=== PATIENT | male | born 1995 | race Caucasian/White ===

== ENCOUNTER 2017-09-14 02:04 | Inpatient (IN) | payer OTHER ==
[~2017-09-14] VITALS: Ht 170.2 cm; Wt 82.4 kg
[2017-09-14] VITALS (10 sets, daily range): BP systolic 127–148; BP diastolic 62–88
--- NOTE | ~2017-09-14 | EKG ---
[place], [place] ELECTROCARDIOGRAM REPORT NAME: ANGEL ISSA UNIT #: [id number] ROOM: 401 DOCTOR: SERGEI GERONIMO,ALEXIA BIRTHDATE: [birth year] DOS: 09/14/2017 Time 4:44 a.m. IMPRESSION: 1. Sinus rhythm, sinus tachycardia. 2. Borderline right atrial enlargement. 3. Baseline artifact. ALEXIA MAI MD CM:EKGRPT:ELECTROCARDIOGRAM REPORT [id number] ALEXIA MAI MD
[~2017-09-14 02:04] MED LIST: CIPRO500 MG PO; COZAAR50 M1 PO; FLAGYL500 MG PO; MOTRIN800 MG PO; NOVOLOG10 ML IV; TOUJEO SOL300 UNIT/1 SQ; VITAMIN D31000 IU PO
[2017-09-14 02:52] LABS: BASO # 0.1 10*3/uL (0.0-0.1); BASO % 0.3 % (0.0-1.0); HEMATOCRIT 48.2 % (42.0-52.0); HEMOGLOBIN 16.8 g/dl (14.0-18.0); LYMPH # 1.6 10*3/uL (1.3-4.4); LYMPH % 9.6 % (27.0-41.0); MEAN CELL VOLUME 90.4 fl (80.0-94.0); MEAN CORPUSCULAR HGB 31.5 pg (27.0-31.0); MEAN CORPUSCULAR HGB CONC 34.9 g/dl (33.0-37.0); MEAN PLATELET VOLUME 10.1 fl (9.6-12.3); MONO # 0.5 10*3/uL (0.1-1.0); MONO % 3.3 % (3.0-9.0); NEUT # 14.1 10*3/uL (2.3-7.9); NEUT % 86.1 % (47.0-73.0); PLATELET COUNT AUTOMATED 381 10*3/uL (130-400); RED BLOOD COUNT 5.33 10*6/uL (4.50-5.90); RED CELL DISTRI WIDTH 12.1 % (0-14.5); WHITE BLOOD COUNT 16.4 10*3/uL (4.8-10.8)
[2017-09-14 03:05] LABS: LIPASE 38 U/L (73-393)
[2017-09-14 03:09] LABS: ALBUMIN 4.7 gm/dl (3.1-4.5); ALKALINE PHOSPHATASE 134 U/L (45-117); BUN 13 mg/dl (7-24); CHLORIDE 89 mmol/L (98-107); CREATININE 1.33 mg/dL (0.70-1.30); POTASSIUM 4.3 mmol/L (3.5-5.1); SGOT/AST 19 IU/L (3-35); SGPT/ALT 31 U/L (12-78); SODIUM 131 mmol/L (136-145); TOTAL PROTEIN 8.6 gm/dL (6.4-8.2)
[2017-09-14 03:27] LABS: BILIRUBIN NEGATIVE (NEGATIVE); BLOOD NEGATIVE (NEGATIVE); CLARITY CLEAR (CLEAR); COLOR YELLOW (YELLOW); GLUCOSE 2+ (NEGATIVE); KETONE 3+ (NEGATIVE); LEUKO ESTERASE NEGATIVE (NEGATIVE); NITRITE NEGATIVE (NEGATIVE); PH 5.5 (5.0-9.0); SPECIFIC GRAVITY 1.025 (1.005-1.030); UROBILINOGEN 0.2 E.U./dl (0.2-1.0)
[2017-09-14 03:38] LABS: ABG HCO3 7.3 mmol/l (22-26); ABG O2 SATURATION 97.3 % (95-97); ARTERIAL BLOOD GAS PCO2 17.8 mmHg (35-45); ARTERIAL BLOOD GAS PH 7.236 (7.35-7.45)
[2017-09-14 03:39] LABS: ABG BASE EXCESS -18.8 mmol/L (-2.0-2.0)
[2017-09-14 03:41] LABS: BACTERIA TRACE; WBC 0-2 wbc/hpf (0-5)
[2017-09-14 05:38] LABS: INTERNATIONAL NORM RATIO 1.1 (2.0-3.5)
[2017-09-14 05:44] LABS: BUN 13 mg/dl (7-24); CHLORIDE 94 mmol/L (98-107); CREATININE 1.53 mg/dL (0.70-1.30); SODIUM 132 mmol/L (136-145)
[2017-09-14 05:46] LABS: POTASSIUM 5.3 mmol/L (3.5-5.1)
[2017-09-14 05:48] LABS: PHOSPHOROUS 5.1 mg/dL (2.5-4.9)
[2017-09-14 05:55] LABS: THYROID STIM HORMONE (HS) 0.816 uIU/ml (0.358-4.75)
[2017-09-14 07:22] LABS: VITAMIN D, 25-HYDROXY 16.7 ng/mL (30-100)
[2017-09-14 10:26] LABS: BUN 11 mg/dl (7-24); CHLORIDE 102 mmol/L (98-107); CREATININE 1.44 mg/dL (0.70-1.30); POTASSIUM 4.9 mmol/L (3.5-5.1); SODIUM 136 mmol/L (136-145)
[2017-09-14 14:40] LABS: BUN 9 mg/dl (7-24); CHLORIDE 104 mmol/L (98-107); CREATININE 1.32 mg/dL (0.70-1.30); SODIUM 137 mmol/L (136-145)
[2017-09-14 14:42] LABS: POTASSIUM 3.7 mmol/L (3.5-5.1)
[2017-09-14 18:19] LABS: BUN 10 mg/dl (7-24); CHLORIDE 104 mmol/L (98-107); CREATININE 1.25 mg/dL (0.70-1.30); POTASSIUM 4.2 mmol/L (3.5-5.1); SODIUM 136 mmol/L (136-145)
[2017-09-14 22:14] LABS: BUN 9 mg/dl (7-24); CHLORIDE 103 mmol/L (98-107); CREATININE 1.24 mg/dL (0.70-1.30); POTASSIUM 3.7 mmol/L (3.5-5.1); SODIUM 134 mmol/L (136-145)
[2017-09-15 04:06] VITALS: BP 124/65
[2017-09-15 06:14] LABS: BASO % 0.2 % (0.0-1.0); EOS % 0.2 % (1.0-4.0); LYMPH # 1.9 10*3/uL (1.3-4.4); LYMPH % 15.4 % (27.0-41.0); MEAN CELL VOLUME 89.8 fl (80.0-94.0); MEAN CORPUSCULAR HGB CONC 35.7 g/dl (33.0-37.0); MONO # 1.2 10*3/uL (0.1-1.0); MONO % 9.4 % (3.0-9.0); NEUT # 9.2 10*3/uL (2.3-7.9); NEUT % 74.2 % (47.0-73.0); PLATELET COUNT AUTOMATED 271 10*3/uL (130-400); RED CELL DISTRI WIDTH 12.1 % (0-14.5); WHITE BLOOD COUNT 12.4 10*3/uL (4.8-10.8)
[2017-09-15 06:19] LABS: BUN 7 mg/dl (7-24); CHLORIDE 104 mmol/L (98-107); CREATININE 1.04 mg/dL (0.70-1.30); POTASSIUM 2.9 mmol/L (3.5-5.1); SODIUM 137 mmol/L (136-145)
[2017-09-15 06:29] LABS: HEMATOCRIT 39.5 % (42.0-52.0); HEMOGLOBIN 14.1 g/dl (14.0-18.0)
[2017-09-15 08:00] VITALS: BP 136/87
[2017-09-15 13:56] LABS: BUN 9 mg/dl (7-24); CHLORIDE 102 mmol/L (98-107); CREATININE 1.31 mg/dL (0.70-1.30); SODIUM 136 mmol/L (136-145)
[2017-09-15 14:03] LABS: POTASSIUM 3.9 mmol/L (3.5-5.1)
[2017-09-15 16:00] VITALS: BP 135/69
[2017-09-16] VITALS: BP 130/64
[2017-09-16 07:47] LABS: BASO % 0.4 % (0.0-1.0); EOS # 0.1 10*3/uL (0.0-0.4); EOS % 1.6 % (1.0-4.0); HEMATOCRIT 35.3 % (42.0-52.0); HEMOGLOBIN 12.5 g/dl (14.0-18.0); LYMPH # 1.9 10*3/uL (1.3-4.4); LYMPH % 32.9 % (27.0-41.0); MEAN CELL VOLUME 90.5 fl (80.0-94.0); MEAN CORPUSCULAR HGB 32.1 pg (27.0-31.0); MEAN CORPUSCULAR HGB CONC 35.4 g/dl (33.0-37.0); MEAN PLATELET VOLUME 9.9 fl (9.6-12.3); MONO # 0.5 10*3/uL (0.1-1.0); MONO % 9.4 % (3.0-9.0); NEUT # 3.1 10*3/uL (2.3-7.9); NEUT % 55.5 % (47.0-73.0); PLATELET COUNT AUTOMATED 197 10*3/uL (130-400); WHITE BLOOD COUNT 5.7 10*3/uL (4.8-10.8)
[2017-09-16 08:00] VITALS: BP 128/76
[2017-09-16 08:22] LABS: CHLORIDE 101 mmol/L (98-107); POTASSIUM 3.5 mmol/L (3.5-5.1); SODIUM 136 mmol/L (136-145)
[2017-09-16 08:33] LABS: BUN 11 mg/dl (7-24); CREATININE 0.95 mg/dL (0.70-1.30)
[2017-09-16] MEDS ORDERED: TOUJEO SOL300 UNIT/1 SQ (09:26)
[2017-09-16] MEDS ORDERED: VITAMIN D-32000 UNIT PO (09:26)
== END 2017-09-16 12:28 | disposition home or self-care (01) | DRG 682 ==
LOC: ED 02:04 → ICCU 03:29 → 4E 03:29 → EDHOLD 03:29 → ICCU 03:55 → 4E 09-15 14:37
PROVIDERS: Emergency Medicine; Hospitalist; Student in an Organized Health Care Education/Training Program
DX: N17.0 Acute kidney failure with tubular necrosis (principal); E13.10 Other specified diabetes mellitus with ketoacidosis without coma; R65.11 Systemic inflammatory response syndrome (SIRS) of non-infectious origin with acute organ dysfunction; E87.2 Acidosis; E87.1 Hypo-osmolality and hyponatremia; R74.8 Abnormal levels of other serum enzymes; R00.0 Tachycardia, unspecified; D72.829 Elevated white blood cell count, unspecified; F12.10 Cannabis abuse, uncomplicated; Z72.0 Tobacco use; Z71.6 Tobacco abuse counseling; Z88.0 Allergy status to penicillin; Z88.2 Allergy status to sulfonamides; Z88.8 Allergy status to other drugs, medicaments and biological substances; Z79.899 Other long term (current) drug therapy; Z79.4 Long term (current) use of insulin; Z83.3 Family history of diabetes mellitus

== ENCOUNTER 2021-04-05 22:33 | Inpatient (IN) | payer OTHER ==
[~2021-04-05] VITALS: Ht 171.4 cm; Wt 99.4 kg
[~2021-04-05 22:33] MED LIST changes: +VITAMIN D-32000 UNIT PO
[2021-04-05 22:47] VITALS: BP 132/88
[2021-04-05 23:14] LABS: BASO % 0.2 % (0.0-1.0); HEMATOCRIT 52.6 % (42.0-52.0); LYMPH # 1.5 10*3/uL (1.3-4.4); LYMPH % 8.2 % (27.0-41.0); MEAN CELL VOLUME 93.1 fl (80.0-94.0); MEAN CORPUSCULAR HGB 30.4 pg (27.0-31.0); MEAN CORPUSCULAR HGB CONC 32.7 g/dl (33.0-37.0); MEAN PLATELET VOLUME 10.4 fl (9.6-12.3); MONO # 0.7 10*3/uL (0.1-1.0); MONO % 3.8 % (3.0-9.0); NEUT # 16.2 10*3/uL (2.3-7.9); NEUT % 87.3 % (47.0-73.0); PLATELET COUNT AUTOMATED 354 10*3/uL (130-400); RED BLOOD COUNT 5.65 10*6/uL (4.50-5.90); RED CELL DISTRI WIDTH 11.7 % (0-14.5); WHITE BLOOD COUNT 18.6 10*3/uL (4.8-10.8)
[2021-04-05 23:20] LABS: ARTERIAL BLOOD GAS PH 7.215 (7.35-7.45); ARTERIAL BLOOD GAS PO2 93.3 (80-90)
[2021-04-05 23:22] LABS: ABG BASE EXCESS -17.8 mmol/L (-2.0-2.0)
[2021-04-05 23:29] LABS: ALBUMIN 4.7 gm/dl (3.1-4.5); ALKALINE PHOSPHATASE 140 U/L (45-117); BUN 21 mg/dl (7-24); CHLORIDE 95 mmol/L (98-107); CREATININE 1.57 mg/dL (0.70-1.30); POTASSIUM 5.2 mmol/L (3.5-5.1); SGOT/AST 11 IU/L (3-35); SGPT/ALT 40 U/L (12-78); SODIUM 130 mmol/L (136-145); TOTAL PROTEIN 9.3 gm/dL (6.4-8.2)
[2021-04-06] MEDS ORDERED: ROSUVASTATIN CA20 MG PO (00:48)
[2021-04-06] MEDS ORDERED: SERTRALINE HYDR25 MG PO (00:48)
[2021-04-06] MEDS ORDERED: ONDANSETRON HYDR8 MG PO (00:48)
[2021-04-06] MEDS ORDERED: LANTUS SOL100 UNIT/1 SC (00:49)
[2021-04-06] MEDS ORDERED: INSULIN AS100 UNIT/5 SQ (00:50)
[2021-04-06] MEDS ORDERED: LEVOTHYROXINE50 MCG PO (00:51)
[2021-04-06 01:51] LABS: BILIRUBIN Negative (Negative); BLOOD Negative (Negative); CLARITY Clear (Clear); COLOR Yellow (Yellow); GLUCOSE 3+ (Negative); KETONE 4+ (Negative); LEUKO ESTERASE Negative (Negative); NITRITE Negative (Negative); SPECIFIC GRAVITY >= 1.030 (1.001-1.030); UROBILINOGEN 0.2 E.U./dl (0.0-1.0)
[2021-04-06 02:00] LABS: BUN 21 mg/dl (7-24); CHLORIDE 105 mmol/L (98-107); POTASSIUM 5.2 mmol/L (3.5-5.1); SODIUM 133 mmol/L (136-145)
[2021-04-06 02:03] LABS: RBC 0-2 rbc/hpf (0-2); WBC 0-2 wbc/hpf (0-5)
[2021-04-06 04:15] VITALS: BP 140/78
[2021-04-06 05:38] LABS: BUN 17 mg/dl (7-24); CHLORIDE 109 mmol/L (98-107); CREATININE 1.25 mg/dL (0.70-1.30); POTASSIUM 4.8 mmol/L (3.5-5.1); SODIUM 136 mmol/L (136-145)
[2021-04-06 05:40] LABS: ALBUMIN 4.1 gm/dl (3.1-4.5); ALKALINE PHOSPHATASE 118 U/L (45-117); BUN 18 mg/dl (7-24); CHLORIDE 106 mmol/L (98-107); CHOLESTEROL 142 mg/dL (<200); CREATININE 1.42 mg/dL (0.70-1.30); FREE T4 0.91 ng/dl (0.76-1.46); LDL CHOLESTEROL 75 mg/dL (9-159); POTASSIUM 4.6 mmol/L (3.5-5.1); SGOT/AST 12 IU/L (3-35); SGPT/ALT 32 U/L (12-78); SODIUM 134 mmol/L (136-145); TOTAL PROTEIN 8.6 gm/dL (6.4-8.2); TRIGLYCERIDES 117 mg/dl (<150)
[2021-04-06 05:44] LABS: THYROID STIM HORMONE (HS) 0.788 uIU/ml (0.358-4.75)
[2021-04-06 06:09] LABS: BASO % 0.2 % (0.0-1.0); HEMATOCRIT 47.8 % (42.0-52.0); LYMPH # 1.9 10*3/uL (1.3-4.4); LYMPH % 10.2 % (27.0-41.0); MEAN CELL VOLUME 91.4 fl (80.0-94.0); MEAN CORPUSCULAR HGB 30.6 pg (27.0-31.0); MEAN CORPUSCULAR HGB CONC 33.5 g/dl (33.0-37.0); MEAN PLATELET VOLUME 10.4 fl (9.6-12.3); MONO # 1.1 10*3/uL (0.1-1.0); NEUT # 15.3 10*3/uL (2.3-7.9); NEUT % 82.9 % (47.0-73.0); PLATELET COUNT AUTOMATED 371 10*3/uL (130-400); RED BLOOD COUNT 5.23 10*6/uL (4.50-5.90); RED CELL DISTRI WIDTH 11.9 % (0-14.5); WHITE BLOOD COUNT 18.4 10*3/uL (4.8-10.8)
[2021-04-06 08:00] VITALS: BP 135/82
[2021-04-06 08:05] VITALS: BP 135/82
[2021-04-06 08:26] LABS: BUN 17 mg/dl (7-24); CHLORIDE 110 mmol/L (98-107); CREATININE 1.17 mg/dL (0.70-1.30); POTASSIUM 4.9 mmol/L (3.5-5.1); SODIUM 135 mmol/L (136-145)
[2021-04-06 11:18] LABS: BUN 14 mg/dl (7-24); CHLORIDE 110 mmol/L (98-107); CREATININE 1.13 mg/dL (0.70-1.30); POTASSIUM 4.6 mmol/L (3.5-5.1); SODIUM 136 mmol/L (136-145)
[2021-04-06 12:00] VITALS: BP 124/62
[2021-04-06 15:38] VITALS: BP 136/67
[2021-04-06 15:39] LABS: BUN 13 mg/dl (7-24); CHLORIDE 110 mmol/L (98-107); CREATININE 1.13 mg/dL (0.70-1.30); POTASSIUM 4.8 mmol/L (3.5-5.1); SODIUM 136 mmol/L (136-145)
[2021-04-06 19:34] LABS: BUN 12 mg/dl (7-24); CHLORIDE 105 mmol/L (98-107); CREATININE 1.22 mg/dL (0.70-1.30); POTASSIUM 4.2 mmol/L (3.5-5.1); SODIUM 133 mmol/L (136-145)
[2021-04-06 20:00] VITALS: BP 108/56
[2021-04-07] VITALS: BP 125/68
[2021-04-07 04:00] VITALS: BP 112/52
[2021-04-07 06:19] LABS: ALBUMIN 3.5 gm/dl (3.1-4.5); ALKALINE PHOSPHATASE 95 U/L (45-117); BUN 11 mg/dl (7-24); CHLORIDE 105 mmol/L (98-107); CREATININE 1.07 mg/dL (0.70-1.30); POTASSIUM 3.9 mmol/L (3.5-5.1); SGOT/AST 11 IU/L (3-35); SGPT/ALT 24 U/L (12-78); SODIUM 135 mmol/L (136-145)
[2021-04-07 06:31] LABS: BASO % 0.1 % (0.0-1.0); EOS % 0.1 % (1.0-4.0); HEMATOCRIT 42.2 % (42.0-52.0); LYMPH % 12.9 % (27.0-41.0); MEAN CELL VOLUME 90.9 fl (80.0-94.0); MEAN CORPUSCULAR HGB 30.4 pg (27.0-31.0); MEAN CORPUSCULAR HGB CONC 33.4 g/dl (33.0-37.0); MEAN PLATELET VOLUME 10.5 fl (9.6-12.3); MONO # 1.2 10*3/uL (0.1-1.0); MONO % 7.8 % (3.0-9.0); NEUT % 78.7 % (47.0-73.0); PLATELET COUNT AUTOMATED 283 10*3/uL (130-400); RED BLOOD COUNT 4.64 10*6/uL (4.50-5.90); RED CELL DISTRI WIDTH 12.2 % (0-14.5); WHITE BLOOD COUNT 15.2 10*3/uL (4.8-10.8)
[2021-04-07 08:00] VITALS: BP 148/66
[2021-04-07 12:00] VITALS: BP 134/60
[2021-04-07] MEDS ORDERED: REGLAN10 M1 PO (13:20)
== END 2021-04-07 14:07 | disposition home or self-care (01) | DRG 420 ==
LOC: ED 22:33 → EDHOLD 04-06 00:16 → ICCU 04-06 00:16
PROVIDERS: Internal Medicine; Social Worker Clinical; ADMIT Student in an Organized Health Care Education/Training Program; ATTEND Student in an Organized Health Care Education/Training Program
DX: E10.10 Type 1 diabetes mellitus with ketoacidosis without coma (principal); N17.0 Acute kidney failure with tubular necrosis; F12.10 Cannabis abuse, uncomplicated; R79.89 Other specified abnormal findings of blood chemistry; R06.82 Tachypnea, not elsewhere classified; E87.5 Hyperkalemia; E87.8 Other disorders of electrolyte and fluid balance, not elsewhere classified; E83.41 Hypermagnesemia; R74.8 Abnormal levels of other serum enzymes; D72.829 Elevated white blood cell count, unspecified; R00.0 Tachycardia, unspecified; I10 Essential (primary) hypertension; E78.5 Hyperlipidemia, unspecified; E03.9 Hypothyroidism, unspecified; F41.9 Anxiety disorder, unspecified; F17.210 Nicotine dependence, cigarettes, uncomplicated; Z71.6 Tobacco abuse counseling; Z88.0 Allergy status to penicillin; Z88.2 Allergy status to sulfonamides; Z88.1 Allergy status to other antibiotic agents; Z83.3 Family history of diabetes mellitus; Z79.899 Other long term (current) drug therapy; R65.10 Systemic inflammatory response syndrome (SIRS) of non-infectious origin without acute organ dysfunction

== ENCOUNTER 2021-04-16 04:51 | Emergency (ER) | payer OTHER ==
[~2021-04-16] VITALS: Ht 177.8 cm; Wt 103.9 kg
[~2021-04-16 04:51] MED LIST changes: +INSULIN AS100 UNIT/5 SQ; +LANTUS SOL100 UNIT/1 SC; +LEVOTHYROXINE50 MCG PO; +ONDANSETRON HYDR8 MG PO; +REGLAN10 M1 PO; +ROSUVASTATIN CA20 MG PO; +SERTRALINE HYDR25 MG PO
[2021-04-16 05:38] LABS: ALBUMIN 3.8 gm/dl (3.1-4.5); ALKALINE PHOSPHATASE 102 U/L (45-117); BUN 8 mg/dl (7-24); CHLORIDE 103 mmol/L (98-107); CREATININE 0.75 mg/dL (0.70-1.30); POTASSIUM 2.8 mmol/L (3.5-5.1); SGOT/AST 19 IU/L (3-35); SGPT/ALT 43 U/L (12-78); SODIUM 137 mmol/L (136-145); TOTAL PROTEIN 7.3 gm/dL (6.4-8.2)
[2021-04-16 05:39] LABS: ACETAMINOPHEN (TYLENOL) < 5.0 ug/ml (10-30); ETHYL ALCOHOL < 3.0 mg/dl (<3)
[2021-04-16 05:42] LABS: BASO % 0.4 % (0.0-1.0); EOS # 0.1 10*3/uL (0.0-0.4); EOS % 1.8 % (1.0-4.0); HEMATOCRIT 45.1 % (42.0-52.0); LYMPH # 2.5 10*3/uL (1.3-4.4); LYMPH % 31.6 % (27.0-41.0); MEAN CELL VOLUME 88.8 fl (80.0-94.0); MEAN CORPUSCULAR HGB 30.5 pg (27.0-31.0); MEAN CORPUSCULAR HGB CONC 34.4 g/dl (33.0-37.0); MEAN PLATELET VOLUME 10.2 fl (9.6-12.3); MONO # 0.9 10*3/uL (0.1-1.0); MONO % 11.5 % (3.0-9.0); NEUT # 4.3 10*3/uL (2.3-7.9); NEUT % 54.4 % (47.0-73.0); PLATELET COUNT AUTOMATED 326 10*3/uL (130-400); RED BLOOD COUNT 5.08 10*6/uL (4.50-5.90); RED CELL DISTRI WIDTH 11.7 % (0-14.5); WHITE BLOOD COUNT 7.9 10*3/uL (4.8-10.8)
[2021-04-16 05:47] LABS: BILIRUBIN Negative (Negative); BLOOD Negative (Negative); CLARITY Cloudy (Clear); COLOR Yellow (Yellow); GLUCOSE Negative (Negative); KETONE 4+ (Negative); LEUKO ESTERASE Negative (Negative); NITRITE Negative (Negative); PH 6.5 (4.5-8.0)
[2021-04-16 05:57] LABS: URINE AMPHETAMINES < 1000 (1000ng/ml); URINE BARBITURATES < 200 (200ng/ml); URINE BENZODIAZEPINES < 200 (200ng/ml); URINE CANNABINOIDS (THC) > 50 (50ng/ml); URINE COCAINE < 300 (300ng/ml); URINE METHADONE < 300 (300ng/ml); URINE OPIATES < 300 (300ng/ml)
[2021-04-16 05:59] LABS: URINE PHENCYCLIDINE < 25 (25ng/ml)
[2021-04-16 06:04] LABS: RBC 0-2 rbc/hpf (0-2); WBC 0-2 wbc/hpf (0-5)
[2021-04-16] MEDS ORDERED: POTASSIUM99 M3 PO (09:52)
== END 2021-04-16 11:30 | disposition short-term general hospital (02) ==
LOC: ED 04:51
PROVIDERS: Emergency Medicine
DX: F43.21 Adjustment disorder with depressed mood (principal); Z20.822 Contact with and (suspected) exposure to COVID-19; F32.9 Major depressive disorder, single episode, unspecified; F41.9 Anxiety disorder, unspecified; I10 Essential (primary) hypertension; E78.5 Hyperlipidemia, unspecified; E03.9 Hypothyroidism, unspecified; E10.9 Type 1 diabetes mellitus without complications; F17.200 Nicotine dependence, unspecified, uncomplicated; Z88.0 Allergy status to penicillin; Z88.2 Allergy status to sulfonamides; Z88.1 Allergy status to other antibiotic agents; Z79.899 Other long term (current) drug therapy; Z79.4 Long term (current) use of insulin

== ENCOUNTER 2021-11-16 04:59 | Emergency (ER) | payer OTHER ==
[~2021-11-16 04:59] MED LIST changes: +POTASSIUM99 M3 PO
[2021-11-16 05:25] LABS: BILIRUBIN Negative (Negative); BLOOD Negative (Negative); CLARITY Clear (Clear); COLOR Yellow (Yellow); GLUCOSE 3+ (Negative); KETONE 4+ (Negative); LEUKO ESTERASE Negative (Negative); NITRITE Negative (Negative); PH 5.5 (4.5-8.0); SPECIFIC GRAVITY >= 1.030 (1.001-1.030)
[2021-11-16 05:40] LABS: RBC 0-2 rbc/hpf (0-2); WBC 0-2 wbc/hpf (0-5)
[2021-11-16 05:44] LABS: ALKALINE PHOSPHATASE 89 U/L (45-117); BUN 17 mg/dl (7-24); CHLORIDE 101 mmol/L (98-107); CREATININE 1.22 mg/dL (0.70-1.30); SGOT/AST 10 IU/L (3-35); SGPT/ALT 29 U/L (12-78); SODIUM 137 mmol/L (136-145); TOTAL PROTEIN 7.6 gm/dL (6.4-8.2)
[2021-11-16 05:56] LABS: BASO % 0.6 % (0.0-1.0); EOS # 0.1 10*3/uL (0.0-0.4); EOS % 1.9 % (1.0-4.0); HEMATOCRIT 44.2 % (42.0-52.0); LYMPH # 1.6 10*3/uL (1.3-4.4); LYMPH % 26.1 % (27.0-41.0); MEAN CELL VOLUME 89.8 fl (80.0-94.0); MEAN CORPUSCULAR HGB 30.9 pg (27.0-31.0); MEAN CORPUSCULAR HGB CONC 34.4 g/dl (33.0-37.0); MEAN PLATELET VOLUME 10.4 fl (9.6-12.3); MONO # 0.6 10*3/uL (0.1-1.0); MONO % 8.8 % (3.0-9.0); NEUT # 3.9 10*3/uL (2.3-7.9); NEUT % 61.5 % (47.0-73.0); PLATELET COUNT AUTOMATED 278 10*3/uL (130-400); RED BLOOD COUNT 4.92 10*6/uL (4.50-5.90); RED CELL DISTRI WIDTH 11.5 % (0-14.5); WHITE BLOOD COUNT 6.3 10*3/uL (4.8-10.8)
[2021-11-16] MEDS ORDERED: LANTUS SOL100 UNIT/1 SC (07:31)
== END 2021-11-16 10:27 | disposition home or self-care (01) ==
LOC: ED 04:59
PROVIDERS: Emergency Medicine
DX: E10.65 Type 1 diabetes mellitus with hyperglycemia (principal); Z79.4 Long term (current) use of insulin; Z88.0 Allergy status to penicillin; Z88.2 Allergy status to sulfonamides; Z88.1 Allergy status to other antibiotic agents; Z79.899 Other long term (current) drug therapy; Z87.891 Personal history of nicotine dependence

== ENCOUNTER 2022-09-19 14:23 | Emergency (ER) | payer OTHER ==
[~2022-09-19] VITALS: Ht 170.1 cm; Wt 99.8 kg
[2022-09-19] MEDS ORDERED: PREDNISONE20 M1 PO (14:47)
== END 2022-09-19 15:02 | disposition home or self-care (01) ==
LOC: ED 14:23
DX: R21 Rash and other nonspecific skin eruption (principal); T50.995A Adverse effect of other drugs, medicaments and biological substances, initial encounter; E11.9 Type 2 diabetes mellitus without complications; Z88.0 Allergy status to penicillin; Z88.2 Allergy status to sulfonamides; Z88.5 Allergy status to narcotic agent; Z88.8 Allergy status to other drugs, medicaments and biological substances; F12.90 Cannabis use, unspecified, uncomplicated; Z87.891 Personal history of nicotine dependence; Y92.89 Other specified places as the place of occurrence of the external cause

== ENCOUNTER 2023-03-25 19:11 | Emergency (ER) | payer OTHER ==
[~2023-03-25] VITALS: Ht 170.1 cm; Wt 108.9 kg
[~2023-03-25 19:11] MED LIST changes: +PREDNISONE20 M1 PO
[2023-03-25] MEDS ORDERED: Ondansetron4 MG PO (20:55)
[2023-03-26] MEDS ORDERED: Motrin,Rufen800 MG PO (01:03)
== END 2023-03-26 01:24 | disposition home or self-care (01) ==
LOC: ED 19:11
DX: S00.81XA Abrasion of other part of head, initial encounter (principal); F32.A Depression, unspecified; E11.9 Type 2 diabetes mellitus without complications; Z79.4 Long term (current) use of insulin; E78.00 Pure hypercholesterolemia, unspecified; E03.9 Hypothyroidism, unspecified; Z88.0 Allergy status to penicillin; Z88.2 Allergy status to sulfonamides; Z88.1 Allergy status to other antibiotic agents; Z88.8 Allergy status to other drugs, medicaments and biological substances; F12.90 Cannabis use, unspecified, uncomplicated; Z72.0 Tobacco use; Y08.89XA Assault by other specified means, initial encounter; Y93.89 Activity, other specified; Y92.89 Other specified places as the place of occurrence of the external cause; Y99.8 Other external cause status

== ENCOUNTER 2023-09-29 03:54 | Emergency (ER) | payer OTHER ==
[~2023-09-29 03:54] MED LIST changes: +Motrin,Rufen800 MG PO; +Ondansetron4 MG PO
== END 2023-09-29 06:03 | disposition home or self-care (01) ==
LOC: ED 03:54
DX: L50.9 Urticaria, unspecified (principal); T50.995A Adverse effect of other drugs, medicaments and biological substances, initial encounter; F41.9 Anxiety disorder, unspecified; E11.65 Type 2 diabetes mellitus with hyperglycemia; Z79.4 Long term (current) use of insulin; E87.5 Hyperkalemia; E83.41 Hypermagnesemia; I10 Essential (primary) hypertension; E87.8 Other disorders of electrolyte and fluid balance, not elsewhere classified; E03.9 Hypothyroidism, unspecified; F12.90 Cannabis use, unspecified, uncomplicated; Z72.0 Tobacco use; E11.9 Type 2 diabetes mellitus without complications; E78.5 Hyperlipidemia, unspecified; R51.9 Headache, unspecified; Z88.0 Allergy status to penicillin; Z88.2 Allergy status to sulfonamides; Z88.1 Allergy status to other antibiotic agents; Z88.8 Allergy status to other drugs, medicaments and biological substances; Y92.89 Other specified places as the place of occurrence of the external cause

== ENCOUNTER 2025-04-20 06:46 | Emergency (ER) | payer OTHER ==
[~2025-04-20] VITALS: Ht 175.2 cm; Wt 108.9 kg
[2025-04-20] MEDS ORDERED: Dexamethasone Sodium Phospha 20 MG/5 ML VIAL IM ONE (07:15)
[2025-04-20] MEDS ORDERED: PREDNISONE20 M1 PO (07:17)
[2025-04-20] MEDS ORDERED: TRIAMCINOLONE430 GM TD (07:17)
== END 2025-04-20 07:38 | disposition home or self-care (01) ==
LOC: ED 06:46
DX: L25.9 Unspecified contact dermatitis, unspecified cause (principal); R21 Rash and other nonspecific skin eruption; F12.90 Cannabis use, unspecified, uncomplicated; Z88.0 Allergy status to penicillin; Z88.1 Allergy status to other antibiotic agents; Z88.2 Allergy status to sulfonamides; Z88.8 Allergy status to other drugs, medicaments and biological substances